=== PATIENT | female | born 1960 | race Caucasian/White ===

== ENCOUNTER 2017-03-19 14:42 | Emergency (ER) | payer MEDICARE ==
[2017-03-19 16:44] VITALS: BP 134/95; TEMP 98.7; O2SAT 99
--- NOTE | 2017-03-19 16:49 | ED.PDOC ---
History of Present Illness - General Chief Complaint: Trauma Stated Complaint: left thumb pain,right chest pain after fall Time Seen by Provider: 03/19/17 14:51 Source: patient Exam Limitations: no limitations - History of Present Illness Initial Comments: SHE FELL ON AN ICE PATCH FOUR DAYS AGO. SHE HAS INJURED HER LEFT THUMB AND THE RIGHT SIDE OF HER CHEST WALL. NOW C/O PAIN UPON DEEP INSPIRATIONS. Severity: moderate Improving Factors: nothing Worsening Factors: nothing Associated Symptoms: chest pain, cough Allergies/Adverse Reactions: Allergies NO KNOWN ALLERGY Allergy (Verified 03/19/17 16:44) Home Medications: Ambulatory Orders Acetaminophen W/ Codeine [Tylenol W/ CODEINE #3] 1 ea PO Q6HRS #20 03/19/17 Alprazolam [Xanax] 2 mg PO QID 03/19/17 Eszopiclone [Lunesta] 3 mg PO BEDTIME 03/19/17 Haloperidol [Haldol] 5 mg PO QID 03/19/17 Trazodone HCl 100 mg PO BEDTIME 03/19/17 Trintellix PO DAILY 03/19/17 Review of Systems - Review of Systems Constitutional: States: no symptoms reported EENTM: States: no symptoms reported Respiratory: States: short of breath Cardiology: States: chest pain Gastrointestinal/Abdominal: States: no symptoms reported Genitourinary: States: no symptoms reported Musculoskeletal: States: no symptoms reported Skin: States: no symptoms reported Neurological: States: no symptoms reported Endocrine: States: no symptoms reported Hematologic/Lymphatic: States: no symptoms reported Past Medical History (General) - Patient Medical History Hx Other - free text: BIPOLAR DISEASE Family Medical History - Family History Mother Family History: Unknown Living Status: Unknown Physical Exam - Physical Exam General Appearance: Alert, Anxious Eye Exam: bilateral normal Ears, Nose, Throat: hearing grossly normal, normal ENT inspection, normal pharynx Neck: non-tender, full range of motion, supple, normal inspection Respiratory: no respiratory distress, other - PAIN TO THE RIGHT CHEST ON PALPATION AND DEEP INSPIRATION Cardiovascular/Chest: normal peripheral pulses, regular rate, rhythm, no edema, no gallop, no JVD, no murmur Peripheral Pulses: radial,right: 2+, radial,left: 2+ Gastrointestinal/Abdominal: normal bowel sounds, non tender, soft, no organomegaly, no pulsatile mass Rectal Exam: deferred Back Exam: normal inspection, no CVA tenderness Extremity: other - LEFT THUMB IS BRUISED Neurologic: alert, normal mood/affect, oriented x 3 Skin Exam: normal color Lymphatic: no adenopathy Progress - Results/Orders Results/Orders: IMAGING IS REPORTED: DISPLACED FRACTURE OF BASE THE LEFT FIRST METACARPAL-INTRA -ARTICULAR THE RIBS ARE NEGATIVE TO THE IMAGING BUT CLINICALLY SHE MOST LIKELY HAS A FRACTURED RIB. Departure - Departure Clinical Impression: Fracture of metacarpal, first, left hand Qualifiers: Encounter type: initial encounter Fracture type: closed Metacarpal location: base Fracture morphology: Walker's Qualified Code(s): S62.212A - Walker's fracture, left hand, initial encounter for closed fracture Chest wall contusion Qualifiers: Encounter type: initial encounter Laterality: right Qualified Code(s): S20.211A - Contusion of right front wall of thorax, initial encounter Time of Disposition: 18:09 Disposition: Discharge to Home or Self Care Departure Forms: ED Discharge - Pt. Copy, Patient Portal Self Enrollment Instructions: DI for Trauma Diet: resume usual diet, regular diet Referrals: Kendall Key MD [Primary Care Provider] - 1-2 Weeks Giancarlo Patricio MD [Referring] - 1-2 Weeks Javier Powell MD [Active Staff] - 1-2 Weeks Prescriptions: Acetaminophen W/ Codeine [Tylenol W/ CODEINE #3] 1 ea PO Q6HRS #20 Home Medications: Ambulatory Orders Acetaminophen W/ Codeine [Tylenol W/ CODEINE #3] 1 ea PO Q6HRS #20 03/19/17 Alprazolam [Xanax] 2 mg PO QID 03/19/17 Eszopiclone [Lunesta] 3 mg PO BEDTIME 03/19/17 Haloperidol [Haldol] 5 mg PO QID 03/19/17 Trazodone HCl 100 mg PO BEDTIME 03/19/17 Trintellix PO DAILY 03/19/17 Additional Instructions: FOLLOW UP WITH DR. POWELL
[2017-03-19] MEDS: HYDROcodone 10MG/APAP 325MG 1 EA TAB PO ONE (17:07)
--- NOTE | 2017-03-19 17:13 | RAD ---
EXAM DESCRIPTION: Ribs,Right 3 Views CLINICAL HISTORY: PAINFUL RIGHT RIB CAGE COMPARISON: None. FINDINGS: Three views of the right ribs were submitted. Cardiac silhouette is within normal limits. There is no focal parenchymal infiltrate. No pleural effusion. No pneumothorax. There is no discrete displaced acute rib fracture. IMPRESSION: No displaced right rib fracture identified Electronically signed by: Ashly Taylor 03/19/2017 5:12 PM [facility]
--- NOTE | 2017-03-19 17:27 | RAD ---
EXAM DESCRIPTION: Hand,Left 3 Views CLINICAL HISTORY: 56 years ,Female PAINFUL RIGHT RIB CAGE COMPARISON: None. TECHNIQUE: LEFT hand, Three view FINDINGS: There is an intra-articular mildly displaced fracture of the base of the first metacarpal. There is mild radial and proximal subluxation of the distal fracture fragment. Small additional fracture fragment is suggested off the lateral aspect of the base of the first metacarpal. Degenerative changes with mild narrowing of the interphalangeal joints and radiocarpal joint. No radiopaque foreign object noted. IMPRESSION: There is an intra-articular mildly comminuted fracture of the base of the first metacarpal with mild displacement of the largest fracture fragment Electronically signed by: Ashly Taylor 03/19/2017 5:26 PM [employer] [employer]
== END 2017-03-19 18:49 | disposition home or self-care (01) ==
LOC: ER 14:42
DX: S62.212A Bennett's fracture, left hand, initial encounter for closed fracture (principal); S20.211A Contusion of right front wall of thorax, initial encounter; W00.0XXA Fall on same level due to ice and snow, initial encounter; Y92.9 Unspecified place or not applicable

== ENCOUNTER → 2017-03-29 | Outpatient (CLI) | payer MEDICARE ==
--- NOTE | 2017-03-29 10:21 | RAD ---
3 views left hand. 3 views left thumb. Indication: PAIN IN LEFT THUMB Comparison: March 19. Impression: Previously noted comminuted mildly displaced fracture of the base of the first metacarpal redemonstrated. There is stable alignment with articular surface step off of approximately 2.5 mm. There is progressive callus formation with near complete healing. No acute no new fractures the left hand or thumb identified. Soft tissues are intact without radiopaque foreign body. Electronically signed by: Regan Cole MD 03/29/2017 10:20 AM [facility]
--- NOTE | 2017-03-29 10:21 | RAD ---
3 views left hand. 3 views left thumb. Indication: PAIN IN LEFT THUMB Comparison: March 19. Impression: Previously noted comminuted mildly displaced fracture of the base of the first metacarpal redemonstrated. There is stable alignment with articular surface step off of approximately 2.5 mm. There is progressive callus formation with near complete healing. No acute no new fractures the left hand or thumb identified. Soft tissues are intact without radiopaque foreign body. Electronically signed by: Regan Cole MD 03/29/2017 10:20 AM [facility]
== END | disposition home or self-care (01) ==
LOC: RAD 08:35
PROVIDERS: ATTEND Orthopaedic Surgery
DX: M79.645 Pain in left finger(s) (principal); M79.642 Pain in left hand

== ENCOUNTER → 2017-04-05 | Outpatient (CLI) | payer MEDICARE ==
--- NOTE | 2017-04-05 12:53 | RAD ---
EXAM DESCRIPTION: Thumb,Left CLINICAL HISTORY: PN IN THUMB COMPARISON: March 29, 2017 IMPRESSION: 3 views of the left thumb again demonstrates mildly displaced, comminuted, intra-articular fracture at the base of the first metacarpal with mild dislocation of the major fracture fragment suggesting Walker fracture. Oblique view shows continued vertical lucency between the major fragments without significant interval change or progressive healing. No new fracture or dislocation is identified. Soft tissues are unremarkable. Electronically signed by: Rajat Espana MD 04/05/2017 12:52 PM [facility]
== END ==
LOC: RAD 08:37
PROVIDERS: ATTEND Orthopaedic Surgery
DX: S62.232A Other displaced fracture of base of first metacarpal bone, left hand, initial encounter for closed fracture (principal)

== ENCOUNTER → 2017-04-16 | Outpatient (CLI) | payer MEDICARE ==
--- NOTE | 2017-04-19 08:45 | RAD ---
EXAM DESCRIPTION: Fingers,Left CLINICAL HISTORY: CLOSED FX OF THE METECARPAL BONES S62.202 (THUMB) COMPARISON: April 05, 2017. March 29, 2017. March 19, 2017. IMPRESSION: Intra-articular fracture at the base of the first metacarpal is less conspicuous on today's study favorable for progressive healing. There is no subluxation/dislocation. No other significant change since the most recent comparison. Electronically signed by: Enio Gonzalez MD 04/19/2017 8:44 AM [facility]
== END ==
LOC: RAD 09:25
PROVIDERS: ATTEND Orthopaedic Surgery
DX: S62.202D Unspecified fracture of first metacarpal bone, left hand, subsequent encounter for fracture with routine healing (principal)

== ENCOUNTER 2017-04-24 12:55 | Emergency (ER) | payer MEDICARE ==
--- NOTE | 2017-04-24 13:07 | ED.PDOC ---
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 Occurred: other - see hpi Severity: moderate Injuries/Pain Location: lower extremity - right knee Reason for Fall: other - see hpi Improving Factors: rest Worsening Factors: movement Associated Symptoms (Fall): denies symptoms Allergies/Adverse Reactions: Allergies NO KNOWN ALLERGY Allergy (Verified 04/24/17 13:11) Home Medications: Ambulatory Orders Acetaminophen W/ Codeine [Tylenol W/ CODEINE #3] 1 ea PO Q6HRS #20 03/19/17 Alprazolam [Xanax] 2 mg PO QID 03/19/17 Eszopiclone [Lunesta] 3 mg PO BEDTIME 03/19/17 Haloperidol [Haldol] 5 mg PO QID 03/19/17 Trazodone HCl 100 mg PO BEDTIME 03/19/17 Trintellix PO DAILY 03/19/17 Review of Systems - Review of Systems Constitutional: States: no symptoms reported EENTM: States: no symptoms reported Respiratory: States: no symptoms reported Cardiology: States: no symptoms reported Gastrointestinal/Abdominal: States: no symptoms reported Genitourinary: States: no symptoms reported Musculoskeletal: States: see HPI Skin: States: no symptoms reported Neurological: States: no symptoms reported All other Systems: Reviewed and Negative, No Change from Baseline Past Medical History (General) - Patient Medical History Hx Stroke: No Hx Congestive Heart Failure: No Hx Diabetes: No Hx Other PMH: Yes - bipolar Surgical History: cholecystectomy, other - BTL - Vaccination History Hx Influenza Vaccination: Yes Hx Pneumococcal Vaccination: No - Social History Hx Tobacco Use: Yes Hx Physical Abuse: No Hx Emotional Abuse: No Hx Suspected Abuse: No - Activities of Daily Living Patient Lives Alone: No Grooming Ability: Independent Eating (Feeding) Ability: Standby Assistance - Female History Patient is a Female of Child Bearing Age (10 -59 yrs old): No Patient : No Physical Exam - Physical Exam General Appearance: Alert, Anxious, No apparent distress Head Injury: no evidence of injury Eye Exam: bilateral normal ENT Exam: hearing grossly normal, no evidence of ENT injury, no dental injury Peripheral Pulses: radial,right: 2+, radial,left: 2+ Cardiovascular/Respiratory: no M/R/G, normal peripheral pulses, no JVD, normal breath sounds Gastrointestinal/Abdominal: non tender, soft, no organomegaly Back Exam: no CVA tenderness, no vertebral tenderness Extremity Exam: no evidence of injury, non-tender, pelvis stable, pain with movement, other - no knee instability,pain medial rotation right knee Neurologic: no motor/sensory deficits, alert, oriented x 3 Skin Exam: normal color - Ezra Coma Score Best Eye Response (Ezra): (4) open spontaneously Best Verbal Response (Ezra): (5) oriented Best Motor Response (Ezra): (6) obeys commands Ezra Total: 15 Progress - Progress Progress: 04/24/17 13:44 Last Vital Signs Temp 97.9 F 04/24/17 13:00 Pulse 84 04/24/17 13:00 Resp 20 04/24/17 13:00 BP 139/88 04/24/17 13:00 Pulse Ox 97 04/24/17 13:00 - EKG/XRAY/CT XRAY: knee - right no acute abnormality Departure - Departure Clinical Impression: Sprain of unspecified site of right knee, initial encounter Time of Disposition: 13:47 Disposition: Discharge to Home or Self Care Condition: Fair Departure Forms: ED Discharge - Pt. Copy, Patient Portal Self Enrollment Instructions: DI for Knee Sprain, Knee Sprain, How to Use an Elastic Bandage- Knee Sprain Referrals: Kendall Key MD [Primary Care Provider] - 1-2 Weeks Home Medications: Ambulatory Orders Acetaminophen W/ Codeine [Tylenol W/ CODEINE #3] 1 ea PO Q6HRS #20 03/19/17 Alprazolam [Xanax] 2 mg PO QID 03/19/17 Eszopiclone [Lunesta] 3 mg PO BEDTIME 03/19/17 Haloperidol [Haldol] 5 mg PO QID 03/19/17 Trazodone HCl 100 mg PO BEDTIME 03/19/17 Trintellix PO DAILY 03/19/17 Additional Instructions: Keep appointment with Orthopedist Dr. Chapman as scheduled;May take Aleve 1-2 tablets am/pm for pain
[2017-04-24 13:11] VITALS: TEMP 97.9
--- NOTE | 2017-04-24 13:37 | RAD ---
Procedure: XR KNEE 4 OR MORE VIEWS . Right Exam Date: 04/24/2017 1:13 PM [facility] Ordering Provider: Yordan Eaton Clinical Indication: pain Comparison: None Findings: No fracture, focal osseous destruction, or malalignment. Joint spaces are preserved. Lateral compartment and mild patellar spurring is present. Soft tissues are unremarkable. IMPRESSION: No acute osseous abnormality. Electronically signed by: Keith Egan MD 04/24/2017 1:36 PM [facility]
[2017-04-24] MEDS ORDERED: HYDROcodone 7.5MG/APAP 325MG 1 EA TAB PO ONE (13:51)
[2017-04-24] MEDS ORDERED: KETOROLAC TROMETHAMINE INJ 30 MG/ML VIAL IM ONE (13:51)
[2017-04-24 14:28] VITALS: BP 136/88; O2SAT 96
== END 2017-04-24 14:16 | disposition home or self-care (01) ==
LOC: ER 12:55
DX: S83.91XA Sprain of unspecified site of right knee, initial encounter (principal); X58.XXXA Exposure to other specified factors, initial encounter; Y92.009 Unspecified place in unspecified non-institutional (private) residence as the place of occurrence of the external cause
CPT/HCPCS: 73562; J1885

== ENCOUNTER → 2017-05-07 | Outpatient (CLI) | payer MEDICARE ==
--- NOTE | 2017-05-07 12:53 | RAD ---
EXAM DESCRIPTION: Fingers,Left CLINICAL HISTORY: 56 years Female, FRACTURE OF FIRST METACARPAL COMPARISON: Previous study April 16, 2017 TECHNIQUE: X-ray images of the left thumb and radial aspect of the hand x3 FINDINGS: Longitudinally oriented fracture through the base of the first metacarpal is seen extending into the first carpometacarpal joint. Findings are consistent with a Walker's fracture. Offset of the articular surfaces of the fracture fragments is compared to the previous study and now measures 2 mm unchanged. No change in overall alignment. Gap at the fracture site is very small measuring 1 mm. Minimal periosteal new bone formation is seen along the ulnar aspect distally. Mild degenerative changes are seen at the first metacarpal phalangeal joint and at the interphalangeal joint of the thumb. IMPRESSION: Healing Walker fracture of the base of the left first metacarpal. Electronically signed by: Raymon Louise MD 05/07/2017 12:52 PM [facility]
--- NOTE | 2017-05-07 12:57 | RAD ---
EXAM DESCRIPTION: Knee,Right 4 x-ray Views CLINICAL HISTORY: 56 years, Female, PAIN IN RIGHT KNEE COMPARISON: Previous study April 24, 2017 TECHNIQUE: 4 views of the right knee FINDINGS: No fracture or dislocation. Bones appear normally mineralized with normal trabecular pattern. Narrowed appearance of the medial compartment is seen on frontal view with small medial joint line spurs. Lesser spurring is seen at the lateral aspect of the lateral femoral condyle and at the tibial spines. Lateral view shows normal position of the patella. Minimal posterior patellar spur formation. Prominent anterosuperior patellar enthesophyte. No suprapatellar knee joint effusion. Normal contour of quadriceps and patellar tendons. Compared to previous study April 24, 2017, no change is evident. No abnormal patellar tilt or subluxation on patellar sunrise view. IMPRESSION: Negative for fracture or dislocation. Degenerative changes as described. Electronically signed by: Raymon Louise MD 05/07/2017 12:56 PM [facility]
--- NOTE | 2017-05-07 12:58 | RAD ---
EXAM DESCRIPTION: Pelvis,2 or More Views CLINICAL HISTORY: 56 years Female, PN IN RIGHT HIP COMPARISON: None. TECHNIQUE: Single AP x-ray view of the pelvis FINDINGS: Bones of the pelvic ring appear intact. Degenerative disc disease is prominent in the lower lumbar spine especially L4-5. Calcifications in the pelvis are most likely phleboliths. Proximal femurs appear intact with no fracture or lytic lesion. IMPRESSION: Negative for fracture or dislocation of hips or pelvis. Degenerative changes in the lower lumbar spine. Electronically signed by: Raymon Louise MD 05/07/2017 12:57 PM [facility]
== END ==
LOC: RAD 09:12
PROVIDERS: ATTEND Orthopaedic Surgery
DX: S62.202D Unspecified fracture of first metacarpal bone, left hand, subsequent encounter for fracture with routine healing (principal); M25.561 Pain in right knee; M25.551 Pain in right hip

== ENCOUNTER → 2017-06-08 | Outpatient (CLI) | payer MEDICARE ==
--- NOTE | 2017-06-08 08:59 | RAD ---
EXAM DESCRIPTION: Thumb,Left CLINICAL HISTORY: 56 years Female, FX COMPARISON: May 07, 2017 and March 29, 2017 FINDINGS: 3 views of the left thumb show an old nonunited, slightly displaced fracture involving the base of the first metacarpal, unchanged from the previous study. No new fracture or malalignment is identified. Mild degenerative changes involve the first MCP joint and interphalangeal joint of the thumb. IMPRESSION: Old nonunited, minimally displaced fracture involving the base of the first metacarpal with extension to the first CMC joint surface, unchanged from May,. Electronically signed by: Demetrius Stokes MD 06/08/2017 8:58 AM CDT
== END | disposition home or self-care (01) ==
LOC: RAD 07:13
PROVIDERS: ATTEND Orthopaedic Surgery
DX: S62.202D Unspecified fracture of first metacarpal bone, left hand, subsequent encounter for fracture with routine healing (principal)

== ENCOUNTER → 2017-06-10 | Outpatient (CLI) | payer MEDICARE ==
--- NOTE | 2017-06-11 09:13 | MRI ---
Study: MRI of the Right Knee. Indication: OSTEOARTHRITIS Technique: Multiplanar, multi sequence MRI of the right knee was obtained without intravenous contrast. Comparison: Radiographs May 07, 2017. Findings: ACL and PCL intact. Both the MCL and FCL are slightly thickened and lax with mild increased internal PD signal. In addition, there is mild thickening of the distal IT band. These findings can be seen in the setting of the osteoarthritic knee. No acute tear defect of the medial or lateral collateral structures. Undersurface tearing and slight extrusion body medial meniscus. Adjacent grade 4 chondrosis throughout the central and and medial weightbearing portions of the medial compartment with mild cortical remodeling and subchondral marrow change. Additional undersurface fraying posterior horn. Posterior to the posterior root there is a 4 mm loose body. Free edge fraying posterior horn lateral meniscus. Irregular grade 4 chondral loss of the central to medial weightbearing portions of the lateral compartment noted with moderate subchondral marrow change. Slight lateral translation tibia in relation to the femur. Insertional quadriceps tendinosis and enthesophyte formation. Patellar tendon intact. Patella normally located. Irregular grade 3 and mild grade 4 chondrosis throughout the patellar apex extending into the medial lateral facets. Moderate size knee effusion with scattered synovitis/debris. 11 mm loose body suspected in the medial recess. No acute fracture. Impression: Oblique undersurface tearing body medial meniscus. Free edge fraying posterior horn lateral meniscus. Changes of the capsular structures which can be seen in the setting of osteoarthritis. Areas of grade 4 chondrosis affecting all 3 compartments as above. Moderate size knee effusion with scattered synovitis/debris/bodies. Electronically signed by: Regan Cole MD 06/11/2017 9:11 AM CDT
== END | disposition home or self-care (01) ==
LOC: MRI 12:42
PROVIDERS: ATTEND Orthopaedic Surgery
DX: M17.11 Unilateral primary osteoarthritis, right knee (principal)

== ENCOUNTER → 2017-07-07 | Outpatient (CLI) | payer MEDICARE | LOC: RESP 09:53 | PROVIDERS: ATTEND Orthopaedic Surgery | DX: Z01.818 Encounter for other preprocedural examination (principal) ==

== ENCOUNTER → 2017-07-19 | Outpatient (CLI) | payer MEDICARE ==
--- NOTE | 2017-07-20 09:32 | RAD ---
EXAM DESCRIPTION: Chest,2 Views CLINICAL HISTORY: PREPROCEDURAL EXAMINATION COMPARISON: None FINDINGS: Two-view chest x-ray shows cardiomediastinal silhouette and pulmonary vasculature to be within normal limits. The lungs are normally aerated and clear. Costophrenic angles are sharp. Moderate disc degenerative changes of the spine are seen. IMPRESSION: No radiographic evidence of acute cardiopulmonary disease. Electronically signed by: Rajat Espana MD 07/20/2017 9:31 AM CDT
== END ==
LOC: YCFC.O 14:06
DX: Z01.818 Encounter for other preprocedural examination (principal); R35.0 Frequency of micturition

== ENCOUNTER 2017-07-27 05:46 | Day surgery (SDC) | payer MEDICARE ==
[2017-07-27] MEDS ORDERED: ceFAZolin SODIUM 1 GM VIAL ONE ×3 (06:10→07:33)
[2017-07-27] MEDS ORDERED: SODIUM CHL 0.9% 100ML MINI-BAG 100 ML IVPB ONE (06:10)
[2017-07-27] MEDS ORDERED: LACTATED RINGERS 1,000 ML ONE (06:10)
[2017-07-27] MEDS ORDERED: fentaNYL CITRATE INJ 50 MCG/ML AMP ONE (06:59)
[2017-07-27] MEDS ORDERED: MIDAZOLAM INJ 2 MG/2 ML VIAL ONE ×2 (06:59→07:10)
[2017-07-27] MEDS: BUPIVACAINE 0.25% W/EPI 50 ML VIAL INJ ONE ×2 (07:25→08:02)
[2017-07-27] MEDS ORDERED: VANCOMYCIN HCL INJ 1,000 MG VIAL IVPB ONE (07:33)
[2017-07-27] MEDS ORDERED: KETOROLAC TROMETHAMINE INJ 30 MG/ML VIAL IV ONE (09:00)
[2017-07-27] MEDS ORDERED: raNITIdine HCL INJ 25 MG/ML VIAL IV ONE (09:00)
[2017-07-27] MEDS ORDERED: LIDOCAINE 1% 10 ML VIAL INJ ONE (09:00)
[2017-07-27] MEDS ORDERED: METOCLOPRAMIDE HCL INJ 10 MG/2 ML VIAL IV ONE (09:00)
[2017-07-27] MEDS ORDERED: PROPOFOL 200 MG/20 ML VIAL IV ONE (09:00)
[2017-07-27] MEDS ORDERED: DEXAMETHASONE INJ 10 MG/ML VIAL IV ONE (09:00)
[2017-07-27 09:52] VITALS: BP 127/82; TEMP 97.9; O2SAT 97
--- NOTE | 2017-07-28 10:46 | OP ---
DATE OF PROCEDURE: 07/27/17 PREOPERATIVE DIAGNOSIS: 1. Knee pain with mechanical symptoms. POSTOPERATIVE DIAGNOSIS: 1. Medial meniscus tear. 2. Osteoarthritis. PROCEDURE: 1. Partial meniscectomy. SURGEON: Javier Chapman MD. PRODUCTION REPAIRER: Anup Jain CST, SA-C. ANESTHESIA: General. COMPLICATIONS: None. FINDINGS: 1. Degenerative tearing and flap tear involving the medial meniscus, its body. 2. 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 3. Normal anterior cruciate ligament and normal posterior cruciate ligament. 4. Chondromalacia of the lateral compartment. 5. Normal lateral meniscus. 6. Normal lateral gutter. 7. Normal suprapatellar pouch. 8. Low grade chondromalacia of the patellofemoral joint. 9. Normal medial gutter. INDICATION: Ms. Butler has a history of knee pain which she has tried, however, has failed conservative measures. Because of her failure of conservative measures, she requested operative intervention. After discussing the risks, benefits and alternatives to that, the patient has given informed consent for that. PROCEDURE: The patient was brought to the Operating Room and placed in supine position. General anesthesia was induced and the patient's leg was sterilely prepped and draped. Standard anteromedial and anterolateral portals were established. Diagnostic arthroscopy was carried out with the above findings. Following that, a 3.5 mm full radius shaver was used to debride the medial meniscus to a stable base. It was thoroughly probed to ensure there was no remaining flap tear or any instability. Once that had been performed, the knee was very thoroughly irrigated and drained. Following draining of the knee, the wounds were closed with Nylon suture. Sterile dressings were placed. The patient was awoken from anesthesia and taken to Recovery. POSTOPERATIVE INSTRUCTIONS: The patient will be partial weightbearing until followup with us in two days. #[id number] [facility]
== END 2017-07-27 09:39 | disposition home or self-care (01) ==
LOC: AMB 05:46
PROVIDERS: ATTEND Orthopaedic Surgery
DX: S83.221A Peripheral tear of medial meniscus, current injury, right knee, initial encounter (principal); M17.11 Unilateral primary osteoarthritis, right knee; M22.41 Chondromalacia patellae, right knee; E66.9 Obesity, unspecified; F41.9 Anxiety disorder, unspecified; F32.9 Major depressive disorder, single episode, unspecified; G47.00 Insomnia, unspecified; Z79.899 Other long term (current) drug therapy
CPT/HCPCS: 01400; 29881; J0690; J1100; J1885; J2250; J2765; J2780; J3010; J3370; J3490; J7050; J7120

== ENCOUNTER → 2017-12-15 | Outpatient (CLI) | payer MEDICARE ==
--- NOTE | 2017-12-17 12:47 | MAM ---
EXAM DESCRIPTION: 3D Screening BILATERAL : Digital Mammography. CLINICAL HISTORY: 57 years Female SCREENING . No complaints. No family history breast cancer. Childbirth. Postmenopausal one year. No HRT.. Lifetime risk of developing breast cancer (Tyrer-Cuzick model)(%): 7.8. COMPARISON: Baseline study at this facility.. No prior reports available. TECHNIQUE: Bilateral CC and MLO projection full-field images, Digital tomosynthesis mammographic technique. Bilateral digital 2-D full-field MLO images. CAD not utilized. FINDINGS: The breast parenchymal density pattern is: Scattered areas of fibroglandular density. No skin thickening or nipple retraction. Bilateral axillary lymph nodes. Bilateral solitary microcalcifications. Focal asymmetry slightly more dense than the surrounding tissues and with possible spiculations, at 11:00-1200 clock of the middle third of the right breast, 9 cm from the nipple. Adjacent benign type calcifications. No focal, stellate mass or density, focal asymmetry , and no suspicious microcalcifications left breast. IMPRESSION: BI-RADS CATEGORY: 0 - INCOMPLETE- Need additional imaging evaluation. FOLLOW-UP: Recall for additional imaging: Targeted right breast ultrasound region of interest right breast.. Written communication concerning the IMPRESSION and Follow-up, will be mailed to the patient and referring health care provider. Electronically signed by: Anup Whitaker MD 12/17/2017 12:45 PM CDT
== END ==
LOC: RAD 10:52
PROVIDERS: ATTEND Family Medicine
DX: Z12.31 Encounter for screening mammogram for malignant neoplasm of breast (principal); Z13.220 Encounter for screening for lipoid disorders; K04.7 Periapical abscess without sinus; R53.83 Other fatigue; R03.0 Elevated blood-pressure reading, without diagnosis of hypertension

== ENCOUNTER → 2018-01-25 | Outpatient (CLI) | payer MEDICARE ==
--- NOTE | 2018-01-25 18:34 | MAM ---
EXAM DESCRIPTION: 3D Diagnostic, Right: Digital Mammography CLINICAL HISTORY: 57 yearsFemaleABN MAMMO history sheet. Lifetime risk of developing breast cancer (Tyrer-Cuzick model) percentage is 8 COMPARISON: Targeted right breast ultrasound prior to this examination.. Bilateral screening digital breast tomosynthesis 12/15/2017.. TECHNIQUE: Right breast LM projection full-field images, digital mammographic tomosynthesis technique. CAD not available. FINDINGS: breast parenchymal density pattern is: Scattered areas of fibroglandular density. No skin thickening or nipple retraction scattered solitary microcalcifications. Right axillary lymph nodes. Intramammary lymph nodes in the anterior breast. Focal asymmetry in the medial to the posterior nipple line in the middle third of the breast. Corresponds to prior screening tomosynthesis findings. ULTRASOUND: Scanning of the right breast at the 11:00 to 1:00 sectors middle third of the breast approximately 9 cm from the nipple. Mostly fatty elements with scattered islands of fibroglandular tissues. Small hypoechoic nodule measuring approximately 5 x 5 mm at the 12:00 position 9 cm from the nipple with acoustic shadowing, seen on initial scanning by the flower planter. Not visible on follow-up imaging by the radiologist or the flower planter. On follow-up imaging, a hypoechoic to anechoic object measuring 5.3 x 4.3 x 5.7 mm is seen in a similar location more anteriorly with circumscribed margins. Parallel orientation and posterior enhancement features. No dominant solid focal mass. No abnormal vascularity. No parenchymal edema or large calcifications. No overlying skin changes. IMPRESSION: BI-RADS CATEGORY: 3 - PROBABLY BENIGN. Management: Short interval (6-month) follow-up digital diagnostic right breast mammography and targeted right breast ultrasound.. The FINDINGS and the FOLLOW-UP plan were reviewed in person with the patient after the examination. Written communication explaining the IMPRESSION and FOLLOW-UP will be mailed to the patient and referring care provider. Electronically signed by: Anup Whitaker MD 01/25/2018 6:33 PM CHEMIST ASSISTANT
--- NOTE | 2018-01-25 18:34 | US ---
EXAM DESCRIPTION: Breast,Right: Ultrasound CLINICAL HISTORY: 57 yearsFemaleABNORMAL MAMMO COMPARISON: Digital diagnostic tomosynthesis right breast on this examination. Bilateral screening digital breast tomosynthesis 12/15/2017. TECHNIQUE: Transcutaneous scanning of the right breast utilizing linares-scale and Doppler modes. Scanning performed by the database security administrator and Dr. Whitaker. FINDINGS: Scanning of the right breast at the 11:00 to 1:00 sectors middle third of the breast approximately 9 cm from the nipple. Mostly fatty elements with scattered islands of fibroglandular tissues. Small hypoechoic nodule measuring approximately 5 x 5 mm at the 12:00 position 9 cm from the nipple with acoustic shadowing, seen on initial scanning by the database security administrator. Not visible on follow-up imaging by the radiologist or the database security administrator. On follow-up imaging, a hypoechoic to anechoic object measuring 5.3 x 4.3 x 5.7 mm is seen in a similar location more anteriorly with circumscribed margins. Parallel orientation and posterior enhancement features. No dominant solid focal mass. No abnormal vascularity. No parenchymal edema or large calcifications. No overlying skin changes. IMPRESSION: 1. Bi-Rads Category 3: Probably Benign Findings. 2. Please refer to diagnostic right breast digital tomosynthesis and report on this visit. The FINDINGS and the FOLLOW-UP plan were reviewed in person with the patient after the examination. Written communication explaining the IMPRESSION and FOLLOW-UP will be mailed to the patient and referring care provider. Electronically signed by: Anup Whitaker MD 01/25/2018 6:32 PM [facility]
== END ==
LOC: MAMMO 10:06
PROVIDERS: ATTEND Family Medicine
DX: R92.8 Other abnormal and inconclusive findings on diagnostic imaging of breast (principal); D72.829 Elevated white blood cell count, unspecified
CPT/HCPCS: 36415; 76641; 77065; 85025; G0279